=== PATIENT | male | born 1935 | race Caucasian/White ===

== ENCOUNTER 2017-08-26 07:38 | Day surgery (SDC) | payer MEDICARE ==
[~2017-08-26] VITALS: Ht 160 cm; Wt 63.8 kg
[~2017-08-26 07:38] MED LIST: AMLO-511 PO; ASPI-556 PO; ATOR40TA28 PO; FINA5TAB41 PO; LEVO75TA4 PO; VALS160T2 PO
[2017-08-26] MEDS ORDERED: POVIDONE-IODINE 10% 15 ML SOLUTION UD TP ONE (07:39)
[2017-08-26] MEDS ORDERED: HYALURONATE SODIUM 12 MG/ML 0.8 ML SYRINGE IO ONE (07:39)
[2017-08-26] MEDS ORDERED: EPINEPHrine 1:1,000 [1 MG/ML] AMP IM ONE (07:39)
[2017-08-26] MEDS ORDERED: MIDAZOLAM HCL 2 MG/2 ML VIAL IVP ONE (07:39)
[2017-08-26] MEDS ORDERED: HYALURONATE SOD/CHONDROITIN SOD 0.5 ML VIAL IO ONE (07:39)
[2017-08-26] MEDS ORDERED: FentaNYL CITRATE-PF 100 MCG/2 ML VIAL IVP ONE (07:39)
[2017-08-26] MEDS ORDERED: BRIMONIDINE TARTRATE 0.15% 5 ML OPHTHALMIC SOLUTION OS ONE (07:39)
[2017-08-26] MEDS ORDERED: TETRACAINE HCL VISCOUS 0.5% 0.6 ML OPHTHALMIC SOLUTION OS ONE (07:39)
[2017-08-26] MEDS ORDERED: LIDOCAINE HCL/PF 1% 2 ML VIAL INJ ONE (07:39)
[2017-08-26] MEDS ORDERED: KETOROLAC TROMETHAMINE 0.5% 5 ML OPHTHALMIC SOLUTION ONE (07:47)
[2017-08-26] MEDS ORDERED: MOXIFLOXACIN HCL 0.5% 3 ML OPHTHALMIC SOLUTION ONE (07:47)
[2017-08-26] MEDS ORDERED: PHENYLEPHRINE HCL 2.5% 2 ML OPHTHALMIC SOLUTION ONE (07:47)
[2017-08-26] MEDS ORDERED: TETRACAINE HCL/PF 0.5% 4 ML OPHTHALMIC SOLUTION ONE (07:47)
[2017-08-26] MEDS ORDERED: CYCLOPENTOLATE HCL 2% 2 ML OPHTHALMIC SOLUTION ONE (07:47)
[2017-08-26] MEDS ORDERED: RINGERS SOLUTION,LACTATED 500 ML IV ONE ×2 (07:48→08:00)
[2017-08-26] MEDS: MOXIFLOXACIN HCL 0.5% 3 ML OPHTHALMIC SOLUTION OS SCH ×3 (08:15→08:31)
[2017-08-26] MEDS: KETOROLAC TROMETHAMINE 0.5% 5 ML OPHTHALMIC SOLUTION OS SCH ×3 (08:15→08:31)
[2017-08-26] MEDS: CYCLOPENTOLATE HCL 2% 2 ML OPHTHALMIC SOLUTION OS SCH ×3 (08:15→08:23)
[2017-08-26] MEDS: PHENYLEPHRINE HCL 2.5% 2 ML OPHTHALMIC SOLUTION OS SCH ×3 (08:15→08:23)
[2017-08-26] MEDS ORDERED: AcetaZOLAMIDE 250 MG TABLET ONE (09:58)
[2017-08-26] MEDS ORDERED: DICLOFENAC SODIUM 0.1% 2.5 ML OPHTHALMIC SOLUTION OS SCH (11:15)
[2017-08-26] MEDS ORDERED: TETRACAINE HCL/PF 0.5% 4 ML OPHTHALMIC SOLUTION OS ONE (11:15)
[2017-08-26] MEDS ORDERED: AcetaZOLAMIDE 250 MG TABLET PO ONE (11:15)
[2017-08-26] MEDS ORDERED: ACETAMINOPHEN/CODEINE 300-30 MG TABLET PO PRN (11:15)
== END 2017-08-26 10:15 | disposition home or self-care (01) ==
LOC: SURGERY 07:38
PROVIDERS: ATTEND Ophthalmology
DX: H25.12 Age-related nuclear cataract, left eye (principal); E78.00 Pure hypercholesterolemia, unspecified; E03.9 Hypothyroidism, unspecified; Z79.01 Long term (current) use of anticoagulants; Z98.41 Cataract extraction status, right eye
CPT/HCPCS: 66984; 93005; C1780; J0171; J2250; J3010; J3490 ×2; J7120

== ENCOUNTER 2023-02-28 10:55 | Emergency (ER) | payer MEDICARE ==
[~2023-02-28] VITALS: Ht 160 cm; Wt 65.9 kg
[~2023-02-28 10:55] MED LIST changes: +AMLO-257 PO; -AMLO-511 PO; +FINA-27 PO; -FINA5TAB41 PO
[2023-02-28] MEDS ORDERED: CHOL500043 PO (11:07)
[2023-02-28] MEDS ORDERED: FINA5TAB41 PO (11:07)
[2023-02-28] MEDS ORDERED: TICA90TA PO (11:07)
[2023-02-28] MEDS ORDERED: TAMS-13 PO (11:07)
[2023-02-28] MEDS ORDERED: ATOR40TA71 PO (11:08)
[2023-02-28] MEDS ORDERED: PERTUSS(ACELL),DIPH,TET VAC/PF 0.5 ML SYRINGE IM. ONE (11:45)
[2023-02-28] MEDS ORDERED: AMOX TR/POT CLAV 875 MG/125 MG TABLET PO ONE (11:45)
[2023-02-28] MEDS ORDERED: AMOX1TAB16 PO (12:09)
[2023-02-28 12:43] VITALS: BP 143/71
== END 2023-02-28 12:56 | disposition home or self-care (01) ==
LOC: EMS 11:20
DX: S81.852A Open bite, left lower leg, initial encounter (principal); E78.00 Pure hypercholesterolemia, unspecified; W54.0XXA Bitten by dog, initial encounter; Y93.89 Activity, other specified; Y92.89 Other specified places as the place of occurrence of the external cause; Y99.8 Other external cause status
CPT/HCPCS: 90471; 90715; 99283